=== PATIENT | male | born 1980 | race Caucasian/White ===

== ENCOUNTER 2019-05-31 12:31 | Emergency (ER) | payer MEDICAID, OTHER ==
[~2019-05-31] VITALS: Ht 162.6 cm; Wt 114.6 kg
[~2019-05-31 12:31] MED LIST: AMOX1TAB10 PO
[2019-05-31 12:40] VITALS: Ht 162.6 cm; Wt 114.6 kg
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
== END 2019-05-31 13:15 | disposition home or self-care (01) ==
LOC: E/R 12:31
DX: S41.151A Open bite of right upper arm, initial encounter (principal); Y04.1XXA Assault by human bite, initial encounter; Y92.9 Unspecified place or not applicable
CPT/HCPCS: 99283